=== PATIENT | female | born 1965 | race African-American/Black ===

== ENCOUNTER 2016-10-22 16:20 | Inpatient (IN) | payer OTHER ==
[~2016-10-22] VITALS: Ht 152.4 cm; Wt 72.1 kg
--- NOTE | 2016-10-22 16:20 | NUR ---
[id number]: SEVERE SOB, HYPOXIA. PT AAO X4, AMB WITH STEADY GAIT. PT PLACED ON MONITOR. 89% ON ROOM AIR. CURRENTLY ON MASK 5L 97% SATURATION. PENDING MD WHITE.
--- NOTE | 2016-10-22 16:30 | NUR ---
IV ACCESSED RIGHT AC 20G. PATENT AND FLUSHING WELL. BLOOD DRAWN AND SENT TO LAB
--- NOTE | 2016-10-22 16:42 | NUR ---
SPIDER ASSEMBLER AT BEDSIDE
[2016-10-22 16:45] LABS: BASOPHILS % (AUTO) 0.1 % (0.0-2.0); EOSINOPHILS # (AUTO) 0.1 /CMM (0.0-0.7); EOSINOPHILS % (AUTO) 0.5 % (0.0-6.0); HEMATOCRIT 35 % (33-45); HEMOGLOBIN 10.6 g/dL (11.5-14.8); LYMPHOCYTES # (AUTO) 2.2 /CMM (0.8-4.8); LYMPHOCYTES % (AUTO) 12.3 % (20.0-44.0); MEAN CORPUSCULAR HEMOGLOBIN 20 PG (26.0-33.0); MEAN CORPUSCULAR HGB CONC 31 g/dl (31.0-36.0); MEAN CORPUSCULAR VOLUME 65 fL (82-100); MONOCYTES # (AUTO) 1.3 /CMM (0.1-1.30); MONOCYTES % (AUTO) 7.4 % (2.0-12.0); NEUTROPHILS # (AUTO) 14.1 /CMM (1.8-8.9); NEUTROPHILS % (AUTO) 79.7 % (43.0-81.0); PLATELET COUNT (AUTO) 498 /CMM (150-450); RED BLOOD CELL COUNT(AUTO) 5.34 MIL/uL (4.0-5.2); WHITE BLOOD COUNT (AUTO) 17.7 K/uL (4.3-11.0)
--- NOTE | 2016-10-22 16:58 | NUR ---
RT ABG ORDERED BY DR. OSORIO. EXPLAINED PROCEDURE TO PT. PT STATED, "DOES IT HAVE TO BE NOW? I JUST GOT STUCK BY ONE NEEDLE CANT IT WAIT?" RELAYED QUESTION TO DR. OSORIO. DR. OSORIO STATED ITS OK TO NOT TO DO ABG AT THIS TIME. IF SATURATION DROPS WILL DO ABG.
[2016-10-22 17:05] LABS: INR 1.12 (0.87-1.13); PROTHROMBIN TIME 12.1 SECS (9.5-12.7)
[2016-10-22 17:08] LABS: CALCIUM, SERUM 9.7 mg/dL (8.5-10.1); POTASSIUM 2.9 mmol/L (3.5-5.1)
[2016-10-22 17:14] LABS: ALBUMIN 3.2 g/dL (3.4-5.0); BILIRUBIN,DIRECT 0.1 mg/dL (0.0-0.2); BILIRUBIN,TOTAL 0.4 mg/dL (0.2-1.0); TOTAL PROTEIN, SERUM 8.6 g/dL (6.4-8.2)
--- NOTE | 2016-10-22 17:14 | NUR ---
PER PT VERY ADAMANT TO USE RESTROOM AND NOT USE BEDPAN, ASSISTED PT TO RESTROOM
[2016-10-22 17:15] LABS: TROPONIN I 0.038 ng/mL (0.00-0.056)
[2016-10-22] MEDS ORDERED: POTASSIUM CL. PREMIX PERIPHER. 200 ML ONE (17:28)
[2016-10-22] MEDS ORDERED: POTASSIUM CHLORIDE 10 MEQ/50 ML PREMIXED IVPB FOR PERIPHERAL LINE IV ONE (17:30)
[2016-10-22 17:43] LABS: APPEARANCE,URINE CLEAR (CLEAR); BILIRUBIN,URINE 1+ (NEGATIVE); BLOOD, URINE NEGATIVE Ery/uL (NEGATIVE); COLOR,URINE DARK YELLO (YELLOW); KETONES,URINE NEGATIVE (NEGATIVE); LEUKOCYTE ESTERASE ,URINE NEGATIVE (NEGATIVE); NITRITE, URINE NEGATIVE (NEGATIVE); PROTEIN,URINE 1+ mg/dl (NEGATIVE); UGLUCOSE NEGATIVE (NEGATIVE)
[2016-10-22] MEDS ORDERED: IV NS 0.9% 250 ML IV ONE (17:47)
[2016-10-22] MEDS ORDERED: IOHEXOL-350 100 ML VIAL IV ONE (17:47)
[2016-10-22 17:50] LABS: BACTERIA,URINE Few /HPF (None Seen); RBC,URINE 0-2 /HPF (0-2); SQUAMOUS EPITHELIAL CELL,UR Few /HPF (None Seen); WBC,URINE 0-2 /HPF (0-3)
--- NOTE | 2016-10-22 18:36 | NUR ---
PT BACK FROM CT
--- NOTE | 2016-10-22 18:53 | NUR ---
CALLED DR OLSEN THORACIC SURGERY, LEFT A VOICEMAIL.
--- NOTE | 2016-10-22 18:59 | NUR ---
DR SMALL ASSISTANT PROFESSOR OF CHEMISTRY MD AT BEDSIDE SPEAKING WITH PT AT THIS TIME
[2016-10-22] MEDS ORDERED: OXYC10TA49 PO (19:01)
[2016-10-22] MEDS ORDERED: LISI-603 PO (19:01)
[2016-10-22] MEDS ORDERED: TIOT4MIS3 IH (19:01)
[2016-10-22] MEDS ORDERED: ALBU18HF2 IH (19:01)
[2016-10-22] MEDS ORDERED: AMLO5TAB2 PO (19:01)
--- NOTE | 2016-10-22 19:06 | NUR ---
CALLED DR GARIBAY THORACIC SURGERY, LEFT VOICEMAIL.
[2016-10-22] MEDS ORDERED: MEROPENEM 500 MG in IV NS 0.9% 50 ML IV ONE (19:30)
[2016-10-22] MEDS ORDERED: ONDANSETRON HCL/PF 4 MG/2 ML VIAL IVP PRN (19:30)
[2016-10-22] MEDS ORDERED: VANCOMYCIN 1 GM in IV D5W 250 ML IV ONE (19:30)
[2016-10-22] MEDS ORDERED: Z GUARD REMEDY 2 OZ OINT TP PRN (19:30)
[2016-10-22] MEDS ORDERED: ALBUTEROL FS 2.5 MG/3 ML VIAL.NEB NEB PRN (19:30)
[2016-10-22] MEDS ORDERED: MAG HYDROX/AL HYDROX/SIMETH 30 ML UDC PO PRN (19:30)
[2016-10-22] MEDS ORDERED: MAGNESIUM HYDROXIDE 30 ML UDC PO PRN (19:30)
[2016-10-22] MEDS ORDERED: ACETAMINOPHEN 325 MG TABLET PO PRN (19:30)
--- NOTE | 2016-10-22 19:51 | NUR ---
PAGED LES HOWARD (THORACIC SURGERY)
--- NOTE | 2016-10-22 19:54 | NUR ---
PATIENT WILL BE ADMITTED INTO ICU 262.
--- NOTE | 2016-10-22 20:08 | NUR ---
REPORT GIVEN TO REN/GREY
--- NOTE | 2016-10-22 20:13 | NUR ---
REPAGED LES HOWARD (THORACIC SURGERY)
--- NOTE | 2016-10-22 20:20 | NUR ---
RN/ICU- ADMITTED THIS 51 Y/O FEMALE FROM ER PER ACLS PROTOCOL. ROUTINE ICU ADMISSION CARE INITIATED. NURSING FOCUS:ALTERED RESPIRATORY STATUS R/T DIAGNOSIS.:ACUTE RESPIRATORY FAILURE.PT. IS AWAKE, ALERT, EXPRESSIVE OF NEEDS. VERY ANXIOUS ,SOB W/ MINIMAL EXERTION. W/ O2 SUPPORT OF 6L/NC. SATS.-88%. EKG-ST W/ HR-113. BP-171/105.REFUSED IV INSERTION AT THIS TIME PER KEVIN RN ,ER. WILL ENCOURAGE PT. LATER . PT. HAS AN IV RIGHT AC G 20, W/ GOOD BLOOD RETURN, D/I.
--- NOTE | 2016-10-22 20:24 | NUR ---
TRANSPORTED TO FLOOR. NURSE MCCLURE AGREED TO GIVE THE 2 ABX.
[2016-10-22 20:27] VITALS: BP 171/105
[2016-10-22 20:32] VITALS: BP 154/86
[2016-10-22] MEDS: oxyCODONE IR immediate release 5 MG CAPSULE PO PRN (20:45)
--- NOTE | 2016-10-22 20:45 | NUR ---
RN/ICU- PT. C/O THROBBING PAIN LEFT CHEST AND BACK, 6/ MEDICATED W/ 10MG PO OF OXYIR. WILL REASSESS PRN EFFECTIVENESS.
[2016-10-22 21:36] VITALS: BP 130/84
[2016-10-22 22:00] VITALS: BP 131/83
[2016-10-22] MEDS: IV NS 0.9% 250 ML IV PRN (22:12)
[2016-10-22] MEDS ORDERED: POTASSIUM CHLORIDE 20 MEQ TAB.PRT.SR PO ONE (22:30)
--- NOTE | 2016-10-22 22:50 | NUR ---
Received report from Chante PACHECO.Patient in high fowlers position awake alert and oriented x 4. Very anxious.Reassured.With sob on exertion. O2 3L NC on sating 90%.ST 112.Safety precaution implemented with call light at bedside within easy reach.Plan of care explained to patient.Refused Midline insertion.NS infusing at TKO to RAC and site intact.Continue monitoring.
[2016-10-22 23:03] VITALS: BP 74/41
[2016-10-22 23:12] VITALS: BP 113/80
[2016-10-23] VITALS (22 sets, daily range): BP systolic 111–137; BP diastolic 66–96
[2016-10-23] MEDS ORDERED: POTASSIUM CHLORIDE 20 MEQ TAB.PRT.SR PO ONE (00:01)
--- NOTE | 2016-10-23 00:05 | NUR ---
K+ level 2.9 K-DUR 40 meq po x 1 dose given per order.
[2016-10-23] MEDS ORDERED: PIPERACILLIN /TAZOBACTAM 2.25 G VIAL IV ONE ×2 (00:07→05:08)
[2016-10-23] MEDS: PIPERACILLIN /TAZOBACTAM 4.5 G in IV D5W 50 ML IV SCH ×4 (00:11→17:05)
--- NOTE | 2016-10-23 01:10 | NUR ---
Patient OOB to BS commode voided with small bm.Tachycardic 120's, very short of breath and desat to 70's.O2 increased to 6L NC and O2 sat went up to 84%.Stayed with patient .Breathing treatment offered by RT but she said she is not ready.Assisted back to bed and made comfortable.
[2016-10-23] MEDS ORDERED: VANCOMYCIN 500 MG VIAL ONE (02:57)
[2016-10-23] MEDS ORDERED: VANCOMYCIN 1 GM VIAL ONE (02:59)
[2016-10-23 04:45] LABS: EOSINOPHILS # (AUTO) 0.4 /CMM (0.0-0.7); HEMATOCRIT 32 % (33-45); HEMOGLOBIN 10.1 g/dL (11.5-14.8); LYMPHOCYTES # (AUTO) 1.9 /CMM (0.8-4.8); LYMPHOCYTES % (AUTO) 10.4 % (20.0-44.0); MEAN CORPUSCULAR HEMOGLOBIN 20 PG (26.0-33.0); MEAN CORPUSCULAR HGB CONC 31 g/dl (31.0-36.0); MEAN CORPUSCULAR VOLUME 65 fL (82-100); MONOCYTES # (AUTO) 1.3 /CMM (0.1-1.30); NEUTROPHILS # (AUTO) 14.9 /CMM (1.8-8.9); NEUTROPHILS % (AUTO) 80.6 % (43.0-81.0); PLATELET COUNT (AUTO) 438 /CMM (150-450); RDW COEFFICIENT OF VARIATION 18.8 (11.5-15.0); RED BLOOD CELL COUNT(AUTO) 4.99 MIL/uL (4.0-5.2); WHITE BLOOD COUNT (AUTO) 18.5 K/uL (4.3-11.0)
[2016-10-23] MEDS ORDERED: VANCOMYCIN 1.25 GM in IV D5W 500 ML IV SCH (05:00)
[2016-10-23 05:05] LABS: CALCIUM, SERUM 8.6 mg/dL (8.5-10.1); CREATININE 1.1 mg/dL (0.6-1.3); MAGNESIUM 1.6 mg/dL (1.8-2.4); PHOSPHORUS 4.4 mg/dL (2.5-4.9)
[2016-10-23 05:10] LABS: POTASSIUM 3.7 mmol/L (3.5-5.1)
[2016-10-23 05:27] LABS: EOSINOPHILS % (MANUAL) 1 % (0-4); LYMPHOCYTES % (MANUAL) 8 % (16-48); MONOCYTES % (MANUAL) 5 % (0-11.0); NEUTROPHILS % (MANUAL) 86 (42-76)
[2016-10-23] MEDS: oxyCODONE IR immediate release 5 MG CAPSULE PO PRN ×2 (06:46→18:32)
--- NOTE | 2016-10-23 07:00 | NUR ---
Patient complaints of pain to left chest post CT placement 2 weeks ago medicated with OXYIR as PRN. Requested breathing treatment.RT notified.Due medication administered.Zosyn to be given by GREY Skelton. Report given for continuity of care.
[2016-10-23] MEDS: PANTOPRAZOLE 40 MG TABLET.DR PO SCH (07:59)
[2016-10-23] MEDS: STIOLTO RESPIMAT INHAL PO SCH (08:25)
[2016-10-23] MEDS: AMLODIPINE BESYLATE 5 MG TABLET PO SCH (08:25)
--- NOTE | 2016-10-23 09:36 | NUR ---
TRANSCRIBING OPERATOR HEAD NOTE 0720: Received awake, A/Ox4 female patient on 3LPM of O2 via NC tolerated at this time. Still noted with increased work of breathing at times. Encouraged patient to do tasks slowly. All needs given. With RAC PIV intact, ATB ongoing. With order for midline insertion, explained the benefits and agreed, made CD aware, awaiting PICC line nurse for midline insertion. Anticoags on hold, awaiting CTS consult, patient aware for the POC. Patient went to commode independently. Reassessed pain for Oxy IR given by previous nurse, still noted with left side of chest SP Sx site (with kalen) pain, but better. Patient refused to remove Tshirt, discussed re: risks and benefits of having hospital gown but still refused to remove shirt. VSS at this time. 0930: NO any significant changes noted at this time. Still on 3LPM of O2, on 96% O2 sat.
--- NOTE | 2016-10-23 10:49 | NUR ---
PLANT MANAGER NOTE PICC nurse at bedside for midline insertion, unsuccessful, and patient does not want to try again. Patient got upset and explained the importance of midline but patient noted shouting when trying to put line on her. Dr. Redmond in the unit aware, patient with PIV on the RAC using for ATB.
[2016-10-23] MEDS: methylPREDNISolone SOD SUCC 125 MG/2ML VIAL IV SCH (11:26)
[2016-10-23] MEDS: Magnesium 1GM/D5W 100ML PREMIX 100 ML IV SCH ×2 (11:52→13:13)
[2016-10-23] MEDS ORDERED: FEE PK DOSING 1 MIN EA MC ONE (13:26)
[2016-10-23] MEDS: ALPRAZOLAM 0.25 MG TABLET PO PRN (17:11)
[2016-10-23] MEDS: VANCOMYCIN 1 GM in IV D5W 250 ML IV SCH (17:58)
[2016-10-23] MEDS ORDERED: HEPARIN INFUSION/D5W 500 ML IV PRN (18:00)
--- NOTE | 2016-10-23 18:06 | NUR ---
CLINICAL TRIAL SPECIALIST NOTE S/E by Dr. Kelley, discussed with patient re: the POC, will place Pleurx cath tomorrow @ 1500, patient verbalized understanding and signed consent for the procedure. MD also ordered to start on Heparin and will stop @ 1200 for prep for the procedure. Made patient aware to be NPO post midnight, verbalized understanding.
[2016-10-23] MEDS ORDERED: HEPARIN SODIUM, PORCINE 5000 UNITS/1 ML VIAL SQ ONE (18:30)
[2016-10-24] VITALS (25 sets, daily range): BP systolic 93–127; BP diastolic 13–88
[2016-10-24] MEDS: PIPERACILLIN /TAZOBACTAM 4.5 G in IV D5W 50 ML IV SCH ×2 (00:15→05:15)
[2016-10-24] MEDS: IV NS 0.9% 250 ML IV PRN (00:15)
[2016-10-24] MEDS: oxyCODONE IR immediate release 5 MG CAPSULE PO PRN ×4 (00:27→21:29)
--- NOTE | 2016-10-24 01:36 | NUR ---
RN NOTES 1900 received patient in bed in sitting position. O2 inhalation via NC; on heparin drip ; call light within reach 1999 takes off nasal cannula at times; saturation goes down to 87%; educated on to use oxygen; plan of care discussed with patient. Aware of being NPO after midnight. Will keep on heparin drip until 12noon on 10/24; no bleeding noted at this time. will have blood draw at midnight. not on distress at this time; refused for another IV line to inserted despite explanation of antibiotics not compatible with heparin 0015 blood drawn; zosyn administered; will hold heparin for half hour 0045 PTT 59; no changes needed for heparin drip; will continue with 1150 units/hr 0130 patient sleeping at this time ; bed in sitting position Addendum: 10/24/16 at 0648 by KIKO KUMAR RN 0500 offered to insert another PIV due to antibiotics; patient refused. But agreed to try midline later on. will endorse to am RN 0600 assisted to [facility]; condition remains the same; still on oxygen. Addendum: 10/24/16 at 0649 by KIKO KUMAR RN 0642 pain med given as needed; will have am RN re assess pain level in an hour; patient kept in high fowlers /sitting position in bed. call light within reach
[2016-10-24] MEDS: VANCOMYCIN 1 GM in IV D5W 250 ML IV SCH ×3 (05:46→17:52)
[2016-10-24 06:52] LABS: EOSINOPHILS # (AUTO) 0.2 /CMM (0.0-0.7); HEMATOCRIT 31 % (33-45); HEMOGLOBIN 9.5 g/dL (11.5-14.8); LYMPHOCYTES # (AUTO) 1.9 /CMM (0.8-4.8); LYMPHOCYTES % (AUTO) 10.7 % (20.0-44.0); MEAN CORPUSCULAR HEMOGLOBIN 20 PG (26.0-33.0); MEAN CORPUSCULAR HGB CONC 31 g/dl (31.0-36.0); MEAN CORPUSCULAR VOLUME 65 fL (82-100); MONOCYTES % (AUTO) 5.8 % (2.0-12.0); NEUTROPHILS # (AUTO) 14.6 /CMM (1.8-8.9); NEUTROPHILS % (AUTO) 82.5 % (43.0-81.0); PLATELET COUNT (AUTO) 414 /CMM (150-450); RDW COEFFICIENT OF VARIATION 19.5 (11.5-15.0); RED BLOOD CELL COUNT(AUTO) 4.73 MIL/uL (4.0-5.2); WHITE BLOOD COUNT (AUTO) 17.7 K/uL (4.3-11.0)
[2016-10-24 07:07] LABS: CALCIUM, SERUM 8.6 mg/dL (8.5-10.1); CREATININE 1.2 mg/dL (0.6-1.3); MAGNESIUM 1.9 mg/dL (1.8-2.4)
[2016-10-24 07:10] LABS: THYROID STIMULATING HORMONE 0.14 uIU/mL (0.358-3.74)
--- NOTE | 2016-10-24 07:30 | NUR ---
ICU/RN: PT RECEIVED, NO DISTRESS NOTED, A&OX4 WITH PERIODS OF FORGETFULNESS. HOSTILE TO CARE AND STAFF. EDUCATED EXTENSIVELY ON MEDS AND POC. PT DEMANDING SNACKS DESPITE NPO STATUS.
[2016-10-24] MEDS ORDERED: HEPARIN SODIUM, PORCINE 1000 UNIT/1 ML VIAL IV ONE (08:30)
[2016-10-24 08:44] LABS: BAND % (MANUAL) 2 % (0.0-5.0); LYMPHOCYTES % (MANUAL) 16 % (16-48); MONOCYTES % (MANUAL) 4 % (0-11.0); NEUTROPHILS % (MANUAL) 78 (42-76)
--- NOTE | 2016-10-24 09:00 | NUR ---
ICU/RN: DUE MEDS ADMINISTERED ORDERED. TAKEN WITH FEW SIPS OF WATER. WILL CONT TO MONITOR PT.
[2016-10-24] MEDS: PANTOPRAZOLE 40 MG TABLET.DR PO SCH (09:10)
[2016-10-24] MEDS: methylPREDNISolone SOD SUCC 125 MG/2ML VIAL IV SCH (09:11)
[2016-10-24] MEDS: AMLODIPINE BESYLATE 5 MG TABLET PO SCH (09:11)
[2016-10-24] MEDS: STIOLTO RESPIMAT INHAL PO SCH (09:13)
[2016-10-24] MEDS: PIPERACILLIN /TAZOBACTAM 3.375 G in IV D5W 50 ML IV SCH ×3 (11:43→23:44)
[2016-10-24] MEDS: ALPRAZOLAM 0.25 MG TABLET PO PRN (12:48)
--- NOTE | 2016-10-24 12:48 | NUR ---
ICU/RN: XANAX ADMINISTERED FOR ANXIETY, AGITATION. REMAINS HOSTILE TO MDS. CONTINUES TO REFUSE MIDLINE INSERTION.
--- NOTE | 2016-10-24 15:30 | NUR ---
ICU/RN: PT TAKEN DOWN TO OR FOR PROCEDURE IN STABLE CONDITION
[2016-10-24] MEDS ORDERED: FENTANYL PF 100MCG/2ML AMPUL ONE (15:32)
[2016-10-24] MEDS ORDERED: MIDAZOLAM HCL 2 MG/2ML VIAL ONE ×2 (15:32→15:34)
--- NOTE | 2016-10-24 16:30 | NUR ---
ICU/RN: PT RECEIVED FROM OR, S/P PLEURX INSERTION L CHEST, DRAINING 200 CC SANGUINEOUS FLUID TO GRAVITY. IV HL PATENT FLUSHED, NO DISTRESS NOTED. PT DENIES PAIN AND DISCOMFORT, NO SOB NOTED. WILL CONT TO MONITOR PT.
[2016-10-24] MEDS ORDERED: ANESTHESIA TRAY IN PYXIS 1 EA TRAY MC ONE (16:56)
[2016-10-24] MEDS: FERROUS SULFATE (325 MG) 325 MG/TAB TABLET PO SCH (17:27)
[2016-10-24] MEDS ORDERED: HEPARIN SODIUM, PORCINE 5000 UNITS/1 ML VIAL IV ONE (19:30)
--- NOTE | 2016-10-24 19:40 | NUR ---
TRANSCRIPTIONIST INITIAL NOTE RECEIVED REPORT FROM DIANE EDMONDS. PT IN BED. A/A/O X4. LUNG SOUNDS DIMINISHED. NEW PLUERA-X PLACED THIS EVENING, CONNECTED TO DRAINAGE BOTTLE, WILL CLARIFY WITH TIAN HOW LONG HE WANTS IT DRAINING. PT IS COMPLAINING OF PAIN IN CHEST TUBE AREA 10/23 WILL ASK FOR ADDITIONAL PAIN MEDICATION ORDERS. BOWEL SOUNDS PRESENT. PT IS DYSPNIC WITH SPEECH ON 4L NC. PULSES PRESENT. IV PATENT AND INTACT. RECOVERY ROOM BOLUS RUNNING, DISCONNECTED, NO ORDER TO CONTINUE. PATIENT ABLE TO MAKES NEEDS KNOWN. BED IN LOW LOCKED POSITION. CALL LIGHT WITHIN REACH. WILL CONTINUE TO MONITOR.
--- NOTE | 2016-10-24 20:00 | NUR ---
DROP WIRE OPERATOR DR OVERTON RETURNED CALL REGARDING PLUERA-X DR DID NOT EVER WANT IT CONNECTED. CLAMPED AND REMOVED. ORDER RECEIVED FOR PAIN MEDICATION, WILL ADMINISTER. DR SNELL RETURNED CALL REGARDING HEPARIN. PHARMACY ASKED ABOUT BOLUS SINCE PTT 30. DR SNELL SAID BOLUS AND THEN RESUME INSTRUCTED VIA PROTOCOL. ALL ORDERS CARRIED OUT.
[2016-10-24] MEDS: MORPHINE SULFATE INJ 2 MG/ML DISP.SYRIN IV PRN (20:23)
[2016-10-24] MEDS ORDERED: HEPARIN INFUSION/D5W 500 ML IV ONE (22:23)
[2016-10-24] MEDS ORDERED: HEPARIN SODIUM, PORCINE 5000 UNITS/1 ML VIAL ONE (22:25)
--- NOTE | 2016-10-24 22:30 | NUR ---
GRINDING AND POLISHING LABORER NON ADMIN HEPARIN GIVEN. NON ADMIN FOR PATIENT SAFETY
[2016-10-24] MEDS: HEPARIN INFUSION/D5W 500 ML IV PRN (22:37)
[2016-10-25] VITALS (14 sets, daily range): BP systolic 93–125; BP diastolic 46–85
[2016-10-25] MEDS: VANCOMYCIN 1 GM in IV D5W 250 ML IV SCH ×2 (00:24→18:15)
[2016-10-25] MEDS: MORPHINE SULFATE INJ 2 MG/ML DISP.SYRIN IV PRN ×4 (00:50→19:59)
[2016-10-25] MEDS: IV NS 0.9% 250 ML IV PRN (04:45)
[2016-10-25 05:19] LABS: HEMATOCRIT 30 % (33-45); HEMOGLOBIN 9.4 g/dL (11.5-14.8); MEAN CORPUSCULAR HEMOGLOBIN 21 PG (26.0-33.0); MEAN CORPUSCULAR HGB CONC 31 g/dl (31.0-36.0); MEAN CORPUSCULAR VOLUME 66 fL (82-100); PLATELET COUNT (AUTO) 415 /CMM (150-450); RDW COEFFICIENT OF VARIATION 19.1 (11.5-15.0); RED BLOOD CELL COUNT(AUTO) 4.55 MIL/uL (4.0-5.2); WHITE BLOOD COUNT (AUTO) 21.1 K/uL (4.3-11.0)
[2016-10-25 05:33] LABS: MAGNESIUM 1.7 mg/dL (1.8-2.4); PHOSPHORUS 3.9 mg/dL (2.5-4.9)
[2016-10-25] MEDS: PIPERACILLIN /TAZOBACTAM 3.375 G in IV D5W 50 ML IV SCH ×4 (05:58→23:02)
--- NOTE | 2016-10-25 06:32 | NUR ---
TELEVISION PRODUCTION CLERK PTT LEVEL THIS AM 65. PER HOSPITAL PROTOCOL- NO CHANGES TO HEPARIN DRIP. NEXT PTT IN AM. WILL CONTINUE TO MONITOR.
[2016-10-25] MEDS: oxyCODONE IR immediate release 5 MG CAPSULE PO PRN ×3 (07:08→23:02)
--- NOTE | 2016-10-25 07:36 | NUR ---
RN NOTES RECEIVED PT AWAKE AND ALERT WITH NAD. PT DENIES PAIN OR SOB AT THIS TIME. ON HEPARIN DRIP ORDERED; NO A/R NOTED. WITH PLEUREX IN PLACE SECURED WITH DRESSING, REMAINS CLAMPED. SAFETY AND COMFORT ENSURED. CALL LIGHT WITHIN REACH. SINUS RHYTHM ON THE MONITOR.
[2016-10-25] MEDS: methylPREDNISolone SOD SUCC 125 MG/2ML VIAL IV SCH (09:06)
[2016-10-25] MEDS: PANTOPRAZOLE 40 MG TABLET.DR PO SCH (09:07)
[2016-10-25] MEDS: AMLODIPINE BESYLATE 5 MG TABLET PO SCH (09:08)
[2016-10-25] MEDS: FERROUS SULFATE (325 MG) 325 MG/TAB TABLET PO SCH ×2 (09:13→16:34)
[2016-10-25] MEDS: STIOLTO RESPIMAT INHAL PO SCH (09:13)
--- NOTE | 2016-10-25 11:33 | NUR ---
RN NOTES PT UPSET AND CURSING, NONCOMPLIANT AND UNCOOPERATIVE; SHE REMOVED O2 INH AND SOME MONITOR CABLES ATTACHED TO HER AND SHE SAID SHE DOESNT NEED IT AND I DONT WANT TO HAVE MYSELF ATTACHED TO IT. EXPLAINED RISK AND BENEFITS BUT PT GOT MORE UPSET. SHE ALSO CLAIMED THAT PEOPLE HERE ARE RACIST AND DOESNT DO ANYTHING FOR HER, THE DOCTORS THAT ARE SEEING HER ARE NOT HER PERSONAL DOCTORS. CHARGE NURSE NIKKI INFORMED RE PTS BEHAVIOR, GREY REA ASSISTED PRIMARY RN TO PTS ROOM TO ANSWER HER NEEDS. CALLED AND SPOKE WITH DR SMALL RE PTS BEHAVIOR . DR SMALL SAID SHE KNOWS THE PT AND HER BEHAVIORAL ISSUES; OK TO DOWNGRADE PT TO TELE; SECURITY OPERATIONS ENGINEER GIL AWARE
[2016-10-25] MEDS: Magnesium 1GM/D5W 100ML PREMIX 100 ML IV SCH ×2 (11:44→12:44)
[2016-10-25 12:40] LABS: LYMPHOCYTES % (MANUAL) 8 % (16-48); MONOCYTES % (MANUAL) 4 % (0-11.0); NEUTROPHILS % (MANUAL) 88 (42-76)
--- NOTE | 2016-10-25 12:41 | NUR ---
RN NOTES PT TRANSFERRED TO 313-1 VIA IN STABLE CONDITION. HEPARIN DRIP INFUSING AT AN ORDERED RATE AND ENDORSED TO GREY IBRAHIM; NO BLEEDING NOTED FROM PLEURX SITE. SITE SECURED WITH DRY DRESSING AND REMAINS CLAMPED.
--- NOTE | 2016-10-25 12:45 | NUR ---
RECEIVED PT FROM ICU IN STABLE CONDITION, NO SOB OR DISTRESS NOTED, WITH MILD ABDOMINAL PAIN, ON ONGOING HEPARIN DRIPS AND IV MAGNESIUM, PT ASSISTED TO BED SAFELY, ORIENTED TO ROOM AND CALL LIGHT, WILL MONITOR.
[2016-10-25] MEDS: HEPARIN INFUSION/D5W 500 ML IV PRN (17:44)
--- NOTE | 2016-10-25 18:29 | NUR ---
PT IN STABLE CONDITION, NO SOB OR DISTRESS NOTED, WITH MILD ABDOMINAL PAIN, PLEURX TUB ON LEFT CHEST CLAMPED, DRESSING IN PLACE, NO N/V, AMBULATED TO RESTROOM X2, CONSUMED HER DINNER, WILL INDORSE TO NEXT SHIFT FOR ED.
--- NOTE | 2016-10-25 20:00 | NUR ---
RN NOTES RECEIVED PT. AWAKE ON BED, A/OX 3, SR ON TELE MONITOR HR-86, PT. REFUSED BODY CHECK, REFUSED FOR ME TO CHECK HER PLEURX CATHETER, PT JUST HAD HER MORPHINE IV FOR PAIN, HEPARIN DRIP RUNNING @ 1150 ML/HR, CALL LIGHT WITHIN REACH, SIDERAILS UPX2 CONTINUE TO MONITOR
--- NOTE | 2016-10-25 23:10 | NUR ---
RN NOTES COMPLAINED OF GENERALIZED PAIN- OXY IR 10MG PO GIVEN ORDERED, V/S STABLE
[2016-10-26] VITALS (9 sets, daily range): BP systolic 106–132; BP diastolic 69–88
[2016-10-26] MEDS: PIPERACILLIN /TAZOBACTAM 3.375 G in IV D5W 50 ML IV SCH ×2 (06:18→12:32)
[2016-10-26] MEDS: oxyCODONE IR immediate release 5 MG CAPSULE PO PRN (06:27)
--- NOTE | 2016-10-26 06:35 | NUR ---
RN NOTES COMPLAINED OF GENERALIZED PAIN, OXY IR 10MG PO GIVEN ORDERED, V/S STABLE
--- NOTE | 2016-10-26 06:42 | NUR ---
RN NOTES AWAKE, HEPARIN DRIP RUNNING, PLEURX CATHETER CLAMPED, DRESSING DRY AND INTACT, CALL LIGHT WITHIN REACH, SIDERAILS UPX2, PT. NEEDS ATTENDED.
[2016-10-26 06:55] LABS: HEMATOCRIT 32 % (33-45); HEMOGLOBIN 9.8 g/dL (11.5-14.8); MEAN CORPUSCULAR HEMOGLOBIN 20 PG (26.0-33.0); MEAN CORPUSCULAR HGB CONC 31 g/dl (31.0-36.0); MEAN CORPUSCULAR VOLUME 66 fL (82-100); PLATELET COUNT (AUTO) 415 /CMM (150-450); RDW COEFFICIENT OF VARIATION 20.8 (11.5-15.0); RED BLOOD CELL COUNT(AUTO) 4.84 MIL/uL (4.0-5.2); WHITE BLOOD COUNT (AUTO) 16.8 K/uL (4.3-11.0)
[2016-10-26 07:20] LABS: CALCIUM, SERUM 8.4 mg/dL (8.5-10.1); CREATININE 0.9 mg/dL (0.6-1.3); MAGNESIUM 1.8 mg/dL (1.8-2.4); PHOSPHORUS 2.9 mg/dL (2.5-4.9); POTASSIUM 4.1 mmol/L (3.5-5.1)
--- NOTE | 2016-10-26 07:20 | NUR ---
COUNSELING AIDE OPENING NOTE RECEIVED REPORT. PATIENT IS AWAKE, A/OX3, FORGETFUL, AGITATED. REPORTS EXHAUSION WITH CURRENT CONDITION AND ANXIETY. VS WNL. EXTERNAL CARDIAL MONITOR RHYTHM SINUS W 83BPM W INVERTED T WAVE. NO CHANGE IN CONDITION PER BEADWORKER NURSE REPORT. PATIENT ON HEPARIN DRIP. CURRENT APPT 57- PER PROTOCOL NO CHANGE IN RATE/DOSE INDICATED AT THIS TIME. HEPARIN DRIP RUNNING AT 23ML/HR (115UNITS/HR) PLEURX CATHETER CLAMPED, DRESSING DRY AND INTACT, CALL LIGHT WITHIN REACH, SIDERAILS X2, ALL NEEDS WITHIN REACH. REPORTS PAIN 4/10 ON CATHETER SITE. STATED PREFERRS TO NOT TAKE ANY MEDICATIONS YET. WILL REASSESS PAIN IN EVERY 15-20 MINUTES.
--- NOTE | 2016-10-26 08:25 | NUR ---
PLACEMENT COORDINATOR NOTES MESSAGE TO DR OVERTON TO COMFIRM CARE OF PLEURX CATH. CURRENTLY CLAMPED; FOLLOWING UP ON IF DRAINAGE WANTED
[2016-10-26] MEDS: PANTOPRAZOLE 40 MG TABLET.DR PO SCH (08:35)
[2016-10-26] MEDS: MORPHINE SULFATE INJ 2 MG/ML DISP.SYRIN IV PRN ×2 (08:48→12:40)
[2016-10-26] MEDS: IV NS 0.9% 250 ML IV PRN (08:49)
--- NOTE | 2016-10-26 08:50 | NUR ---
CYN EDMONDS NOTES PER DR OVERTON UNCLAMP DRAINAGE EVERY OTHER DAY AND DRAIN BY GRAVITY UNTIL DRAINAGE STOPS. Addendum: 10/26/16 at 1528 by ANDREA CHAN RN UNCLAMP TUBE AND DRAIN BY GRAVITY Q48 HRS TO START TODAY. PER SHOULD TAKE NO MORE THAN 15 MINUTES AND RE CLAMP
[2016-10-26 09:00] LABS: LYMPHOCYTES % (MANUAL) 28 % (16-48); MONOCYTES % (MANUAL) 3 % (0-11.0); NEUTROPHILS % (MANUAL) 69 (42-76)
[2016-10-26] MEDS: AMLODIPINE BESYLATE 5 MG TABLET PO SCH (09:00)
--- NOTE | 2016-10-26 09:11 | NUR ---
POLICY VALUE CALCULATOR NOTES CALLED [facility] [phone] AND OBTAINED MEDICAL RECORDS FAX #[phone]. WILL FAX MEDICAL INFORMATION RELEASE PAPERWORK PER DR GONSALEZ
--- NOTE | 2016-10-26 09:26 | NUR ---
EARLY CHILDHOOD ASSISTANT NOTES CALLED [facility] FOR DR MCCLAIN [phone] FAX # [phone]. WILL HAVE PATIENT SIGN AND FAX OVER RELEASE. PER QUARRY PLANT CRUSHER OPERATOR THEY WILL NOT LOOK AT PAPERWORK UNTIL THURSDAY MORNING
--- NOTE | 2016-10-26 09:30 | NUR ---
TOUR CONSULTANT NOTE NORVASC WAS NOT ADMINISTERED. PATIENT HAS A HX OF LABILE BP. WILL RE-CKECK AT NOON.
[2016-10-26] MEDS: FERROUS SULFATE (325 MG) 325 MG/TAB TABLET PO SCH ×2 (09:53→16:00)
[2016-10-26] MEDS: methylPREDNISolone SOD SUCC 125 MG/2ML VIAL IV SCH (09:54)
[2016-10-26] MEDS: STIOLTO RESPIMAT INHAL PO SCH (12:45)
--- NOTE | 2016-10-26 13:00 | NUR ---
SUPERVISOR SHEARING NOTE PER DR. SMALL AND DR. GONSALEZ HEPARING IS DISCONTINUED ORDERED.
[2016-10-26] MEDS: VANCOMYCIN 1 GM in IV D5W 250 ML IV SCH (13:18)
[2016-10-26] MEDS: ENOXAPARIN SODIUM 60 MG/0.6 ML DISP.SYRIN SQ SCH ×2 (13:23→21:07)
--- NOTE | 2016-10-26 14:46 | NUR ---
SALES SUPPORT COORDINATOR NOTES NOTIFIED MD SMALL PATIENT IV INFILTRATED. PATIENT IS REFUSING IV ACCESS. PER MD IVERSON TO DC IV ANTIBIOTICS AND SOLU MEDROL.
[2016-10-26] MEDS: ALPRAZOLAM 0.25 MG TABLET PO PRN (15:54)
--- NOTE | 2016-10-26 16:00 | NUR ---
HOGSHEAD DUMPER NOTE PER DR SMALL'S ORDER DRAINED CHEST TUBE BY GRAVITY. CHEST TUBE CATHETER WAS UNCLAMPED AND LET TO DRAIN BY GRAVITY. LO FLUIDS WERE EVIDENT IN 10 MINUTES. TUBE WAS CLAMPED BACK. PATIENT TOLERATED PROCEDURE WELL. NO S/S OF PAIN/SOB/DISTRESS. REPORTED PAIN 2/10 IN LOW BACK THAT IS TOLERABLE. REPORTED ANXIETY. ANXIOLYTIC MEDICATION ORDERED ORDERED. WILL REASSESS PATIENT CONDITION IN 20-30 MINUTES.
--- NOTE | 2016-10-26 16:29 | NUR ---
COCONUT BOILER PER DR. SMALL'S ORDER REMOVED IV ANGIOCATHETER. CATETHER TIP IS INTACT, NO S/S OF INFECTION. PRESSURE DRESSING APPLIED TO THE SITE, NO EVIDENT BLEEDING OVER THE DRESSING. PATIENT TOLERATED PROCEDURE WELL.
--- NOTE | 2016-10-26 17:40 | NUR ---
MUSIC AUTOGRAPHER NOTE FAXED PAPERWORK FOR DRAINAGE KIT SUPPLY PER DR. OVERTON TO CASE MANAGEMENT. PLACED CONSULT FOR CASE MANAGEMENT.
--- NOTE | 2016-10-26 19:15 | NUR ---
POISER BALANCE NOTES JUST HEARD BACK FROM INSIDE OUTSIDE SALES REPRESENTATIVE; PER NEFTALI MIXON WE DO NOT HAVE DRAINAGE SYSTEMS TO DRAIN PATIENT PLEURX. CALLED DR OVERTON AND LEFT MESSAGE TO NOTIFY
--- NOTE | 2016-10-26 19:17 | NUR ---
PATIENT IS SITTING ON A CHAIR AND WATCHING TV. ATE DINNER, REPORT NO PAIN, DISCOMFORT. PATIENT IS AMBULATING W/O ASSISTANCE AND PRESENTS WITH STEADY GAIT. ALL NEEDS WITHIN REACH. VS WNL. EXTERNAL ASSISTANT GROCERY STORE MANAGER READING SINUS TACHYCARDIA HR 116 WITH INVERTED T WAVE. NO NEW CHANGES. PATIENT IS STABLE. WILL INDORCE TO ALUM OPERATOR FOR CONTINUATION OF CARE.
--- NOTE | 2016-10-26 19:30 | NUR ---
DOLL REPAIRER NOTE: PATIENT RESTING IN BED, NO ACUTE DISTRESS NOTED. BREATHING EVEN AND UNLABORED, NO SOB NOTED. TELE READING SR TO SINUS TACHY 90-100. PLEUREX CATH TO LEFT ABDOMEN IN PLACE, NO BLEEDING NOTED. BED LOCKED AND IN LOWEST POSITION, CALL LIGHT IN REACH. WILL CONTINUE TO MONITOR.
[2016-10-27] VITALS: BP 136/91
--- NOTE | 2016-10-27 02:00 | NUR ---
ANALOG IC DESIGN ENGINEER NOTE: PATIENT SLEEPING IN BED, NO ACUTE DISTRESS NOTED. BREATHING EVEN AND UNLABORED, NO SOB NOTED. BED LOCKED AND IN LOWEST POSITION. CALL LIGHT IN REACH. WILL CONTINUE TO MONITOR.
[2016-10-27 04:00] VITALS: BP 138/81
--- NOTE | 2016-10-27 06:05 | NUR ---
SURVEILLANCE OPERATOR NOTE: PATIENT RESTING IN BED, NO ACUTE DISTRESS NOTED. BREATHING EVEN AND UNLABORED, NO SOB NOTED. TELE READING SR 88. PLEUREX CATH TO LEFT ABDOMEN IN PLACE. BED LOCKED AND IN LOWEST POSITION, CALL LIGHT IN REACH. WILL ENDORSE TO DAY NURSE TO CONTINUE WITH PLAN OF CARE.
[2016-10-27 06:29] LABS: HEMATOCRIT 31 % (33-45); HEMOGLOBIN 9.5 g/dL (11.5-14.8); MEAN CORPUSCULAR HEMOGLOBIN 20 PG (26.0-33.0); MEAN CORPUSCULAR HGB CONC 31 g/dl (31.0-36.0); MEAN CORPUSCULAR VOLUME 65 fL (82-100); PLATELET COUNT (AUTO) 418 /CMM (150-450); RDW COEFFICIENT OF VARIATION 20.5 (11.5-15.0); RED BLOOD CELL COUNT(AUTO) 4.72 MIL/uL (4.0-5.2); WHITE BLOOD COUNT (AUTO) 16.5 K/uL (4.3-11.0)
[2016-10-27 06:45] LABS: CALCIUM, SERUM 8.8 mg/dL (8.5-10.1); CREATININE 0.8 mg/dL (0.6-1.3); POTASSIUM 3.7 mmol/L (3.5-5.1)
[2016-10-27 07:02] LABS: MAGNESIUM 1.7 mg/dL (1.8-2.4); PHOSPHORUS 2.4 mg/dL (2.5-4.9)
--- NOTE | 2016-10-27 07:30 | NUR ---
APPLIED PSYCHOLOGY TEACHER NOTE: PATIENT PLEURX CATH DRAINED WITH 200ML OF BLOODY DRAINAGE. PATIENT TOLERATED TREATMENT WELL AND SITE DRESSING CHANGED. WILL ENDORSE TO DAY NURSE.
[2016-10-27 07:51] LABS: BAND % (MANUAL) 4 % (0.0-5.0); LYMPHOCYTES % (MANUAL) 17 % (16-48); MONOCYTES % (MANUAL) 6 % (0-11.0); NEUTROPHILS % (MANUAL) 73 (42-76)
[2016-10-27 08:00] VITALS: BP 144/87
--- NOTE | 2016-10-27 08:00 | NUR ---
SENIOR ENGINEERING SPECIALIST NOTES IN ROOM WITH PATIENT AND GREY WILSON. PATIENT YELLING AND REQUESTING PAIN MEDICATIONS. YELLING AT US THAT SHE HAS MEDICATIONS AND OXY SHE WILL TAKE. CALMLY EXPLAINED TO PATIENT WE HAVE A POLICY OF NO MEDICATIONS IN THE ROOM AND IF WE COULD PLEASE TAKE THEM TO PHARMACY WE ARE NOT ABLE TO GIVE A CONTROLLED SUBSTANCE/ MEDICATIONS TO HER WHEN SHE HAS THEM IN THE ROOM. PATIENT IS YELLING STATING SHE ISNT STUPID SHE WONT TAKE THEM, ITS NOT HER FAULT. EXPLAINED TO PATIENT IT IS NOT HER FAULT BUT I AM EDUCATING HER ON SAFETY FOR HERSELF. PATIENT YELLING AT ME TO GET OUT OF THE ROOM AND SHE DOESN'T WANT TO SEE ME ANY MORE. OVER HEARD PATIENT STATING ITS "WHITE PEOPLE LIKE ME WHO GET HER IN TROUBLE AND SHE DOESN'T WANT ME TO TAKE CARE OF HER ANY MORE" GREY WILSON WILL CONTINUE CARE OF THIS PATIENT.
[2016-10-27] MEDS: oxyCODONE IR immediate release 5 MG CAPSULE PO PRN ×3 (08:03→17:15)
[2016-10-27] MEDS: FERROUS SULFATE (325 MG) 325 MG/TAB TABLET PO SCH ×2 (08:07→17:14)
[2016-10-27] MEDS: PANTOPRAZOLE 40 MG TABLET.DR PO SCH (08:08)
[2016-10-27] MEDS: AMLODIPINE BESYLATE 5 MG TABLET PO SCH (08:08)
[2016-10-27] MEDS: STIOLTO RESPIMAT INHAL PO SCH (08:10)
[2016-10-27] MEDS: ENOXAPARIN SODIUM 60 MG/0.6 ML DISP.SYRIN SQ SCH (08:16)
--- NOTE | 2016-10-27 08:54 | NUR ---
SAFETY SECURITY OFFICER NOTES MESSAGE TO CASE MANAGEMENT TO SEE IF THEY RECEIVED FAX OF DR OVERTON ORDER FOR CHEST TUBE KITS
[2016-10-27] MEDS ORDERED: methylPREDNISolone SOD SUCC 125 MG/2ML VIAL IV SCH (09:00)
--- NOTE | 2016-10-27 11:17 | NUR ---
WOUND CARE CONSULT: SPOKE WITH RN WHO STATED WOUND CONSULT NOT NEEDED. PLEUREX PER MD. WILL SEE PRN.
--- NOTE | 2016-10-27 11:36 | NUR ---
Social service consult requested by Dr. Redmond for cancer support group and community resources. Pt. is a 51 year old -[place] female who was admitted to [facility] for sepsis and Pulmonary Embolism. Pt. has a diagnosis of cancer. ANAT met with pt. bedside. Pt. is alert and oriented x 3. SW offered pt. cancer support group and community resources, however pt. declined stating she has the resources she needs. Pt. informed SW she is waiting for Ang Magallanes to see her and discharge her so she can go to see her oncologist. Pt. states [facility] will provide the transportation to her oncology appointment. SW informed pt. she will inform welfare case worker to assist with transportation.
[2016-10-27] MEDS ORDERED: Magnesium 1GM/D5W 100ML PREMIX 100 ML IV SCH (11:58)
[2016-10-27 12:00] VITALS: BP 119/85
[2016-10-27] MEDS ORDERED: MAGNESIUM OXIDE 400 MG TABLET PO ONE (12:30)
--- NOTE | 2016-10-27 13:54 | NUR ---
SAP BASIS NOTES SPOKE WITH APURVA SENA AND SHE RECEIVED FAX OF DR OVERTON ORDERS FOR HOME CHEST TUBE KITS FOR PATIENT. SHE WILL F/U
[2016-10-27] MEDS ORDERED: predniSONE 20 MG TABLET PO SCH (14:00)
[2016-10-27] MEDS ORDERED: ENOX60DI SQ (14:09)
[2016-10-27] MEDS ORDERED: METH4TAB17 PO (14:09)
[2016-10-27 16:00] VITALS: BP 125/77
[2016-10-27] MEDS ORDERED: K PHOS NEUTRAL 250 MG TABLET PO ONE (16:00)
--- NOTE | 2016-10-27 16:53 | NUR ---
RISK CONTROL FIELD REPRESENTATIVE NOTES CM IS SETTING UP HOME HEALTH FOR PATIENT. MD EDUCATED PATIENT ON DC AND F/U'S NEEDED. PATIENT AWARE NOT TO SHOWER WITH THE CHEST TUBE AND TO F/U WITH DR OVERTON FOR ANY QUESTIONS ON DC. AWAITNG CM APPROVAL INFORMATION FOR DC
--- NOTE | 2016-10-27 18:19 | NUR ---
[place] NOTES APURVA CM STATES OXYGEN TANK WILL BE DELIVERED TO PATIENT AT 8PM AND HOME HEALTH IS SET UP. PATIENT STATES APPOINTMENT IS SET UP TOMORROW FOR REBEL CATH PLACEMENT. WILL BE EDUCATED ON DC ABOUT LOVENOX
--- NOTE | 2016-10-27 18:55 | NUR ---
PATIENT IS CURRENTLY RESTING IN THE CHAIR AWAITING TO BE DISCHARGED. PATIENT IS 2 L OXYGEN FOR COMFORT, SP02 95%. DISCHARGE PAPERWORK IS PREPARED AND VERIFIED WITH PATIENT. HOME MEDICATIONS RETURNED TO PATIENT. AL BELONGS ACCOUNTED FOR. CALLED TO [facility] TRANSP[facility] TO ARRANGE TRANSPORTATION FOR PATIENT. DISCHARGE EDUCATION PROVIDED, PATIENT VERBALIZED UNDERSTANDING OF TEACHINGS. WILL GIVE REPORT TO [facility] SHIFT NURSE/ENDORSE FOR EDI.
--- NOTE | 2016-10-27 19:24 | NUR ---
PACKING SHED SUPERVISOR NOTES CALLED PATIENT [facility] AND SPOKE TO [place] AND ARRANGED PER PATIENT REQUEST TRANSPORT WHICH SHE SET UP THROUGH HER INSURANCE ALREADY. RESERVATION # [id number]. PATIENT AWARE. ALL HOME MEDICATIONS RETURNED TO PATIENT. PATIENT AWAITING SHIP YARD ELECTRICAL PERSON AND STABLE AT THIS TIME
--- NOTE | 2016-10-27 19:29 | NUR ---
FINANCIAL MANAGEMENT NOTE DRESSING CHANGE COMPLETED PRIOR TO DISCHARGE. PATIENT TOLERATED PROCEDURE WELL. CLERAN DRESSING IN PLACE. PATIENT REFUSED PICTURES.
--- NOTE | 2016-10-27 19:35 | NUR ---
TRUCK SPOTTER NOTE: PATIENT RESTING IN BED, NO ACUTE DISTRESS NOTED. BREATHING EVEN AND UNLABORED, NO SOB NOTED. PLEUREX CATH TO LEFT ABDOMEN IN PLACE, NO BLEEDING NOTED. PATIENT TO BE DISCHARGED TONIGHT, PAPERWORK COMPLETED AND SIGNED DURING DAY SHIFT. BELONGINGS CHECKED DURING DAYSHIFT AND TRANSPORT SET TO RAILROAD WATCHMAN PATIENT AT 2030. PATIENT ALSO TO HAVE OXYGEN DELIVERED HERE AT HOSPITAL PRIOR TO DISCHARGE. BED LOCKED AND IN LOWEST POSITION, CALL LIGHT IN REACH. WILL CONTINUE TO MONITOR.
[2016-10-27 20:06] VITALS: BP 150/89
--- NOTE | 2016-10-27 20:30 | NUR ---
LABOR GANG SUPERVISOR NOTE: PATIENT DISCHARGE TO HOME, WITH INDEPENDENT CONTRACTOR SET UP WITH INSURANCE. HOME OXYGEN DELIVERED TO HOSPITAL BY [facility] AND SENT HOME WITH PATIENT. DISCHARGE PAPERWORK WITH PATIENT, TELE BOX REMOVED. ID BAND REMOVED. PATIENT WHEELED OFF FLOOR WITH INTERNAL CORROSION SPECIALIST IN STABLE CONDITION WITH ALL BELONGINGS.
== END 2016-10-27 20:25 | disposition home health service (06) | DRG 720 ==
LOC: ER 16:22 → ICU 20:11 → MED 10-25 12:28 → TELE 10-25 13:01
PROVIDERS: ADMIT Internal Medicine; ATTEND Internal Medicine
PROC: 0W9B30Z Drainage of Left Pleural Cavity with Drainage Device, Percutaneous Approach (ICD-10-PCS; principal; 2016-10-24 15:30)
DX: A41.9 Sepsis, unspecified organism (principal); I26.99 Other pulmonary embolism without acute cor pulmonale; J96.01 Acute respiratory failure with hypoxia; J94.2 Hemothorax; C78.02 Secondary malignant neoplasm of left lung; J94.8 Other specified pleural conditions; J91.0 Malignant pleural effusion; C25.9 Malignant neoplasm of pancreas, unspecified; D47.3 Essential (hemorrhagic) thrombocythemia; D63.8 Anemia in other chronic diseases classified elsewhere; D75.89 Other specified diseases of blood and blood-forming organs; E44.0 Moderate protein-calorie malnutrition; Z88.5 Allergy status to narcotic agent; Z87.891 Personal history of nicotine dependence; Z79.84 Long term (current) use of oral hypoglycemic drugs; J93.9 Pneumothorax, unspecified; I27.2 Other secondary pulmonary hypertension; J98.11 Atelectasis; I10 Essential (primary) hypertension; I07.1 Rheumatic tricuspid insufficiency; E87.6 Hypokalemia; E11.9 Type 2 diabetes mellitus without complications; J43.9 Emphysema, unspecified; R65.20 Severe sepsis without septic shock
CPT/HCPCS: 36415; 71010-TC; 80048-TC; 80061-TC; 80076-TC; 80202-TC; 81000-TC; 82728-TC; 83540-TC; 83605-TC; 83735-TC; 84100-TC; 84439-TC; 84443-TC; 84484-TC; 85025-TC; 85730-TC; 87040-TC; 87081-TC; 87086-TC; 93307-TC; A4216; A4606; A6402; A6403; J1644; J1650; J2185; J2250; J2270; J2405; J2543; J2930; J3010; J3370; J3475; J3480; J7040; J7050; J7060; Q9967; Z7610